=== PATIENT | male | born 1945 | race Caucasian/White ===

== ENCOUNTER → 2019-09-09 | Outpatient (CLI) | payer OTHER | LOC: SJCVC 11:25 | DX: I48.0 Paroxysmal atrial fibrillation (principal); R94.31 Abnormal electrocardiogram [ECG] [EKG]; Q28.2 Arteriovenous malformation of cerebral vessels; K26.4 Chronic or unspecified duodenal ulcer with hemorrhage; I10 Essential (primary) hypertension; E78.5 Hyperlipidemia, unspecified; E11.65 Type 2 diabetes mellitus with hyperglycemia; C61 Malignant neoplasm of prostate; C67.9 Malignant neoplasm of bladder, unspecified; I63.9 Cerebral infarction, unspecified; M19.90 Unspecified osteoarthritis, unspecified site; Z86.73 Personal history of transient ischemic attack (TIA), and cerebral infarction without residual deficits; Z79.82 Long term (current) use of aspirin; Z79.899 Other long term (current) drug therapy; Z87.891 Personal history of nicotine dependence ==

== ENCOUNTER → 2020-03-09 | Outpatient (CLI) | payer OTHER | LOC: SJCVC 11:59 | PROVIDERS: ATTEND Internal Medicine | DX: I48.0 Paroxysmal atrial fibrillation (principal); I49.1 Atrial premature depolarization; K26.4 Chronic or unspecified duodenal ulcer with hemorrhage; Q28.2 Arteriovenous malformation of cerebral vessels; I10 Essential (primary) hypertension; E78.5 Hyperlipidemia, unspecified; E11.65 Type 2 diabetes mellitus with hyperglycemia; C61 Malignant neoplasm of prostate; C67.9 Malignant neoplasm of bladder, unspecified; I63.9 Cerebral infarction, unspecified; Z79.899 Other long term (current) drug therapy; Z87.891 Personal history of nicotine dependence ==